=== PATIENT | male | born 1985 | race African-American/Black ===

== ENCOUNTER 2019-01-17 08:18 | Emergency (ER) | payer OTHER ==
[2019-01-17 09:15] LABS: URINE BLOOD (Dip) POC Negative (NEGATIVE); URINE GLUCOSE (Dip) POC Negative (NEGATIVE); URINE KETONES (Dip) POC Trace (NEGATIVE); URINE LEUKOCYTE EST (Dip) POC Negative (NEGATIVE); URINE NITRITE (Dip) POC Negative (NEGATIVE); URINE TOTAL PROTEIN POC 1+ (NEGATIVE)
== END 2019-01-17 10:11 | disposition home or self-care (01) ==
LOC: FTE 08:18
DX: R07.89 Other chest pain (principal)
CPT/HCPCS: 81003; 93005; 99283-25